=== PATIENT | male | born 1975 | race Two or more races ===

== ENCOUNTER 2023-05-17 12:49 | Emergency (ER) | payer OTHER ==
[~2023-05-17] VITALS: Ht 165.1 cm; Wt 72.6 kg
[2023-05-17 14:48] LABS: HEMATOCRIT 44.2 % (39.0-48.0); HEMOGLOBIN 15.9 g/dL (13-16.00); MEAN CELL VOLUME 86.5 fL (80.0-100.00); MEAN CORPUSCULAR HGB CONC 35.9 g/dl (32.0-36.0); PLATELET COUNT 248 K/uL (150-450); RED BLOOD COUNT 5.11 M/uL (4.00-6.00); RED CELL DISTRIBUTION WIDTH 12.9 % (11.5-14.5)
[2023-05-17] MEDS ORDERED: ZITHROMAX500 MG PO (15:41)
[2023-05-17] MEDS ORDERED: TUSNEL LIQUID178 ML PO (15:41)
== END 2023-05-17 16:22 | disposition home or self-care (01) ==
LOC: ER 12:49
PROVIDERS: General Practice
DX: B34.9 Viral infection, unspecified (principal); Z20.822 Contact with and (suspected) exposure to COVID-19

== ENCOUNTER 2023-06-29 07:40 | Outpatient (CLI) | payer OTHER ==
[~2023-06-29 07:40] MED LIST: TUSNEL LIQUID178 ML PO; ZITHROMAX500 MG PO
== END 2023-06-29 07:49 | disposition home or self-care (01) ==
LOC: RX STUDY 07:40
DX: R13.10 Dysphagia, unspecified (principal); R07.9 Chest pain, unspecified

== ENCOUNTER 2023-07-29 17:44 | Emergency (ER) | payer OTHER ==
[~2023-07-29] VITALS: Ht 165.1 cm; Wt 70.3 kg
[2023-07-29] MEDS ORDERED: GLUCAGON 1 MG VIAL IV STA (19:08)
[2023-07-29] MEDS ORDERED: KETOROLAC TROMETHAMINE 30 MG VIAL IV ONE (19:15)
== END 2023-07-29 20:06 | disposition home or self-care (01) ==
LOC: ER 17:44
DX: T18.128A Food in esophagus causing other injury, initial encounter (principal); Z88.0 Allergy status to penicillin

== ENCOUNTER 2023-11-30 05:38 | Emergency (ER) | payer OTHER ==
[~2023-11-30] VITALS: Ht 165.1 cm; Wt 72.6 kg
[2023-11-30] MEDS ORDERED: CETIRIZINE HCL 5 MG/5 ML ML PO ONE (09:00)
[2023-11-30] MEDS ORDERED: DEXAMETHASONE SODIUM PHOSPHATE 4 MG/ML VIAL IM ONE (09:00)
[2023-11-30 09:41] LABS: HEMOGLOBIN 15.7 g/dL (13-16.00); MEAN CELL VOLUME 89.1 fL (80.0-100.00); MEAN CORPUSCULAR HEMOGLOBIN 31.2 pg (27.00-32.0); PLATELET COUNT 254 K/uL (150-450); RED BLOOD COUNT 5.05 M/uL (4.00-6.00); RED CELL DISTRIBUTION WIDTH 12.9 % (11.5-14.5)
== END 2023-11-30 11:04 | disposition home or self-care (01) ==
LOC: ER 05:39
PROVIDERS: General Practice
DX: J06.9 Acute upper respiratory infection, unspecified (principal); Z88.0 Allergy status to penicillin; Z20.822 Contact with and (suspected) exposure to COVID-19

== ENCOUNTER 2024-01-20 21:49 | Emergency (ER) | payer OTHER ==
[~2024-01-20] VITALS: Ht 165.1 cm; Wt 72.6 kg
[2024-01-20] MEDS ORDERED: BACTRIM DS TAB1 EACH PO (22:13)
[2024-01-20] MEDS ORDERED: NABUMETONE500 MG PO (22:13)
[2024-01-20] MEDS ORDERED: KETOROLAC TROMETHAMINE 60 MG VIAL IM ONE ×2 (22:14→22:15)
[2024-01-20] MEDS ORDERED: CEFTRIAXONE SODIUM 1,000 MG VIAL ONE (22:14)
[2024-01-20] MEDS ORDERED: CEFTRIAXONE SODIUM 1,000 MG VIAL IM ONE (22:15)
== END 2024-01-20 22:41 | disposition home or self-care (01) ==
LOC: ER 21:50
DX: L02.416 Cutaneous abscess of left lower limb (principal); Z88.0 Allergy status to penicillin
CPT/HCPCS: 96372; 99282; J0696; J1885

== ENCOUNTER → 2024-03-10 | Emergency (ER) | payer OTHER ==
[~2024-03-10] VITALS: Ht 165.1 cm; Wt 68.9 kg
[~2024-03-10] MED LIST changes: +BACTRIM DS TAB1 EACH PO; +DIPHENHYDRAMINE HCL 50 MG/ML VIAL 1ML IM STA; +HALOPERIDOL LACTATE 5 MG/ML AMPUL IM STA; +KETOROLAC TROMETHAMINE 30 MG VIAL IV STA; +NABUMETONE500 MG PO
== END | disposition left against medical advice (07) ==
LOC: ER 03:37
DX: F41.9 Anxiety disorder, unspecified (principal); Z88.0 Allergy status to penicillin

== ENCOUNTER 2024-06-07 20:03 | Emergency (ER) | payer OTHER ==
[~2024-06-07] VITALS: Ht 162.6 cm; Wt 70.3 kg
[~2024-06-07 20:03] MED LIST changes: -DIPHENHYDRAMINE HCL 50 MG/ML VIAL 1ML IM STA; -HALOPERIDOL LACTATE 5 MG/ML AMPUL IM STA; -KETOROLAC TROMETHAMINE 30 MG VIAL IV STA
[2024-06-08] MEDS ORDERED: GUAIFENESIN 200 MG/10 ML BLIST.PACK PO STA (00:19)
[2024-06-08] MEDS ORDERED: ACETAMINOPHEN 500 MG GEL..CAP PO STA (00:19)
[2024-06-08] MEDS ORDERED: ACETAMINOPHEN 500 MG GEL..CAP PO ONE (00:29)
[2024-06-08] MEDS ORDERED: GUAIFENESIN 200 MG/10 ML BLIST.PACK PO ONE (00:29)
[2024-06-08 01:00] LABS: HEMATOCRIT 43.2 % (39.0-48.0); HEMOGLOBIN 14.7 g/dL (13-16.00); MEAN CELL VOLUME 89.3 fL (80.0-100.00); MEAN CORPUSCULAR HEMOGLOBIN 30.3 pg (27.00-32.0); MEAN CORPUSCULAR HGB CONC 33.9 g/dl (32.0-36.0); PLATELET COUNT 253 K/uL (150-450); RED BLOOD COUNT 4.84 M/uL (4.00-6.00)
[2024-06-08] MEDS ORDERED: ZITHROMAX500 MG PO (04:13)
[2024-06-08] MEDS ORDERED: ZYNCOF 20-400120 ML PO (04:13)
[2024-06-08] MEDS ORDERED: ALBUTEROL2.5 MG/3 M IH (04:13)
== END 2024-06-08 03:16 | disposition home or self-care (01) ==
LOC: ER 20:06
PROVIDERS: General Practice
DX: J06.9 Acute upper respiratory infection, unspecified (principal); Z20.822 Contact with and (suspected) exposure to COVID-19; Z88.0 Allergy status to penicillin

== ENCOUNTER 2024-06-29 04:28 | Emergency (ER) | payer OTHER ==
[~2024-06-29] VITALS: Ht 165.1 cm; Wt 68.5 kg
[~2024-06-29 04:28] MED LIST changes: +ALBUTEROL2.5 MG/3 M IH; +ZYNCOF 20-400120 ML PO
[2024-06-29] MEDS ORDERED: KETOROLAC TROMETHAMINE 60 MG VIAL IM STA (05:58)
[2024-06-29] MEDS ORDERED: KETOROLAC TROMETHAMINE 60 MG VIAL IM ONE (06:01)
[2024-06-29 07:09] LABS: CALCIUM 9.2 mg/dL (8.5-10.1); CREATININE SERUM 1.3 mg/dL (0.70-1.30); GFR 59.17; HEMATOCRIT 38.4 % (39.0-48.0); HEMOGLOBIN 13.6 g/dL (13-16.00); MEAN CELL VOLUME 85.7 fL (80.0-100.00); MEAN CORPUSCULAR HEMOGLOBIN 30.3 pg (27.00-32.0); MEAN CORPUSCULAR HGB CONC 35.4 g/dl (32.0-36.0); PLATELET COUNT 281 K/uL (150-450); POTASSIUM 3.68 mEq/L (3.5-5.1); RED BLOOD COUNT 4.48 M/uL (4.00-6.00); RED CELL DISTRIBUTION WIDTH 12.7 % (11.5-14.5)
[2024-06-29 08:47] LABS: PH,URINE 5.5 (5.0-8.0); URINE APPEARANCE Clear; URINE BILIRRUBIN Negative (NEGATIVE); URINE BLOOD Negative; URINE COLOR Yellow; URINE GLUCOSE Negative (NEGATIVE); URINE KETONE 15 (NEGATIVE); URINE LEUKOCYTE Negative; URINE NITRATE Negative; URINE PROTEIN Negative (NEGATIVE); URINE UROBILINOGEN 0.2 E.U./dl
[2024-06-29 08:50] LABS: URINE BACTERIA 2.4 uL (0.0-1933); URINE EPITHELIAL CELLS 0.6 uL (0.0-38.8); URINE RBC 1.9 uL (0.0-20.8); URINE WBC 1.2 uL (0.0-23.2)
[2024-06-29] MEDS ORDERED: MINERAL OIL 30 ML BLIST.PACK PO ONE (11:45)
[2024-06-29] MEDS ORDERED: MAGNESIUM HYDROXIDE 400 MG/5 ML ML PO ONE (11:45)
[2024-06-29] MEDS ORDERED: LACTULOSE 20 G/30 ML BLIST.PACK PO ONE (11:45)
[2024-06-29] MEDS ORDERED: LACTULOSE 20 G/30 ML BLIST.PACK ONE (12:14)
[2024-06-29] MEDS ORDERED: MINERAL OIL 30 ML BLIST.PACK ONE (12:14)
[2024-06-29] MEDS ORDERED: MAGNESIUM HYDROXIDE 30 ML BLIST.PACK PO ONE (12:14)
== END 2024-06-29 14:01 | disposition home or self-care (01) ==
LOC: ER 04:30
PROVIDERS: General Practice
DX: R10.9 Unspecified abdominal pain (principal); Z88.0 Allergy status to penicillin